=== PATIENT | male | born 1980 | race Caucasian/White ===

== ENCOUNTER 2016-07-02 17:00 | Emergency (ER) | payer OTHER ==
[~2016-07-02 17:00] MED LIST: ADVAIR 1001 DISK W/D PO; BENADRYL PO; COMBIVENT INH14.7 GM INH; IBUPROFEN; LEVAQUIN PO; VISINE15 ML
== END 2016-07-02 20:22 | disposition home or self-care (01) ==
LOC: CED 17:00
DX: J02.0 Streptococcal pharyngitis (principal); F17.200 Nicotine dependence, unspecified, uncomplicated; Z88.6 Allergy status to analgesic agent
CPT/HCPCS: 87880; 99283

== ENCOUNTER 2016-07-30 14:23 | Emergency (ER) | payer OTHER | END 2016-07-30 14:59 | disposition home or self-care (01) | LOC: CED 14:23 | DX: T20.20XA Burn of second degree of head, face, and neck, unspecified site, initial encounter (principal); T31.0 Burns involving less than 10% of body surface; Z88.6 Allergy status to analgesic agent; X19.XXXD Contact with other heat and hot substances, subsequent encounter | CPT/HCPCS: 99283 ==